=== PATIENT | female | born 1995 ===

== ENCOUNTER 2019-01-23 16:16 | Emergency (ER) | payer OTHER ==
--- NOTE | 2019-01-23 16:27 | ED ---
Lower Extremity - HPI Summary HPI Summary: 23 yo female presents to [facility] with left calf pain. She tells me that for the last 3-4 days she has noticed some left calf pain that is worse with ambulation and with palpation. Rest improves her symptoms. She has not taken anything OTC for her symptoms. She was at [facility] earlier today for this and they recommended she come to the ED over concerns for a DVT. Pt takes a daily OBC, but does not smoke, has had no recent travel, and denies difficulty breathing, dyspnea, chest pain, SOB. No personal or family hx of blood clots - History of Current Complaint Chief Complaint: EDExtremityLower Stated Complaint: "LEFT CALF PAIN PER PT" Time Seen by Provider: 01/23/19 16:26 Hx Obtained From: Patient Severity Initially: Mild Severity Currently: Mild Pain Intensity: 2 Pain Scale Used: 0-10 Numeric - Allergies/Home Medications Allergies/Adverse Reactions: Allergies Allergy/AdvReac Type Severity Reaction Status Date / Time No Known Allergies Allergy Verified 01/23/19 16:26 PMH/Surg Hx/FS Hx/Imm Hx Endocrine/Hematology History: Denies: Hx Anticoagulant Therapy, Hx Blood Disorders, Hx Diabetes, Hx Anemia , Hx Unexplained Bleeding, Hx Coagulopothy, Autoimmune Disease Respiratory History: Denies: Hx Asthma, Hx Chronic Obstructive Pulmonary Disease (COPD) Neurological History: Denies: Hx CVA, Hx Headaches Psychiatric History: Denies: Hx Anxiety, Hx Depression - Surgical History Surgical History: None Infectious Disease History: No Infectious Disease History: Denies: Traveled Outside the [place] in Last 30 Days - Family History Known Family History: Positive: Non-Contributory - Social History Occupation: Student Lives: Dormitory/Roommates Alcohol Use: Occasionally Substance Use Type: Reports: None Smoking Status (MU): Never Smoked Tobacco Review of Systems Constitutional: Negative Cardiovascular: Negative Respiratory: Negative Gastrointestinal: Negative Genitourinary: Negative Musculoskeletal: Other - Left calf pain Skin: Negative Neurological: Negative Psychological: Normal All Other Systems Reviewed And Are Negative: No Physical Exam - Summary Physical Exam Summary: GENERAL: NAD. WDWN. No pain distress. SKIN: No rashes, sores, lesions, or open wounds. CHEST: CTAB. No accessory muscle use. Breathing comfortably and in no distress. CV: Pulses intact PT and DP. Cap refill <2seconds MSK: LEFT CALF: Slight TTP about area of concern at medial mid calf. No edema or obvious bony deformities. Negative [place] test. Negative Anival sign. NEURO: Alert. Sensations intact and symmetric B/L LEs PSYCH: Age appropriate behavior. Triage Information Reviewed: Yes Vital Signs On Initial Exam: Initial Vitals Temp Pulse Resp BP Pulse Ox 98.4 F 77 16 135/87 100 01/23/19 16:20 01/23/19 16:20 01/23/19 16:20 01/23/19 16:20 01/23/19 16:20 Vital Signs Reviewed: Yes Diagnostics - Vital Signs Vital Signs Temp Pulse Resp BP Pulse Ox 01/23/19 16:20 98.4 F 77 16 135/87 100 - Laboratory Lab Results: Laboratory Tests 01/23/19 01/23/19 16:45 16:45 WBC 5.6 RBC 4.64 Hgb 14.0 Hct 41 MCV 89 MCH 30 MCHC 34 RDW 13 Plt Count 347 MPV 7.3 L Neut % (Auto) 51.9 Lymph % (Auto) 38.9 [place] % (Auto) 7.5 Eos % (Auto) 1.1 Baso % (Auto) 0.6 Absolute Neuts (auto) 2.9 Absolute Lymphs (auto) 2.2 Absolute Monos (auto) 0.4 Absolute Eos (auto) 0.1 Absolute Basos (auto) 0.0 Absolute Nucleated RBC 0.0 Nucleated RBC % 0.1 Sodium 138 Potassium 3.8 Chloride 104 Carbon Dioxide 27 Anion Gap 7 BUN 12 Creatinine 0.81 Est GFR ( Amer) 108.0 Est GFR (Non-Af Amer) 89.3 BUN/Creatinine Ratio 14.8 Glucose 108 H Calcium 9.4 Total Bilirubin 0.70 AST 18 ALT 14 Alkaline Phosphatase 74 Total Protein 6.9 Albumin 4.4 Globulin 2.5 Albumin/Globulin Ratio 1.8 Beta HCG, Quant < 0.60 Result Diagrams: 01/23/19 16:45 01/23/19 16:45 Lab Statement: Any lab studies that have been ordered have been reviewed, and results considered in the medical decision making process. - Ultrasound Left leg Ultrasound Interpretation Completed By: Radiologist Summary of Ultrasound Findings: IMPRESSION: NO EVIDENCE FOR DEEP VENOUS THROMBOSIS. Lower Extremity Course/Dx - Course Course Of Treatment: US negative. Labwork WNL. Suspect muscle strain. Advised to rest and take tylenol/ibuprofen for discomfort. F/u with [facility] early next week for a recheck - Diagnoses Provider Diagnoses: Calf cramp Discharge ED - Sign-Out/Discharge Documenting (check all that apply): Patient Departure Patient Received Moderate/Deep Sedation with Procedure: No - Discharge Plan Condition: Stable Disposition: HOME Patient Education Materials: Muscle Strain (ED) Referrals: No Primary Care Phys,NOPCP [Primary Care Provider] - [facility] - [place] [facility] [[place], APPLICATION, OTHER] - 3 Days Additional Instructions: If you develop a fever, shortness of breath, chest pain, new or worsening symptoms - please call your PCP or go to the ED immediately. Your Ultrasound was normal today Please rest and take tylenol/ibuprofen for your discomfort. Please follow up with [facility] for further evaluation of your pain. - Billing Disposition and Condition Condition: STABLE Disposition: Home - Attestation Statements Provider Attestation: I was available for consultation for this patient. I did not evaluate the patient or participate in any medical decision making or disposition decisions unless I am specifically named in the chart as having consulted on the patient. If I have consulted on the patient, please see my own ED note on the patient encounter. Sincere Ramirez MD
[2019-01-23 17:06] LABS: ABS Eosinophils 0.1 10^3/ul (0-0.6); ABS Lymphocytes 2.2 10^3/ul (1.0-4.8); ABS Monocytes 0.4 10^3/ul (0-0.8); ABS Neutrophils 2.9 10^3/ul (1.5-7.7); Hematocrit 41 % (35-47); Lymphocyte % 38.9 %; Mean Corpuscular HGB Conc 34 g/dL (31-36); Mean Corpuscular Hemoglobin 30 pg (27-31); Mean Corpuscular Volume 89 fL (80-97); Mean Platelet Volume 7.3 fL (7.4-10.4); Platelet Count 347 10^3/uL (150-450); Red Blood Count 4.64 10^6 /uL (3.70-4.87); Red Cell Distribution Width 13 % (10-15); White Blood Count 5.6 10^3/uL (3.5-10.8)
[2019-01-23 17:07] LABS: Eosinophil % 1.1 %; Nucleated Red Blood Cells % 0.1
[2019-01-23 17:18] LABS: ALT 14 U/L (7-52); AST 18 U/L (13-39); Albumin 4.4 g/dL (3.2-5.2); Albumin/Globulin Ratio 1.8 (1-3); Alkaline Phosphatase 74 U/L (34-104); Anion Gap 7 mmol/L (2-11); BUN/Creatinine Ratio 14.8 (8-20); Blood Urea Nitrogen 12 mg/dL (6-24); CO2 Carbon Dioxide 27 mmol/L (22-32); Calcium 9.4 mg/dL (8.6-10.3); Chloride 104 mmol/L (101-111); EGFR Non-African American 89.3 (>60); Globulin 2.5 g/dL (2-4); Glucose 108 mg/dL (70-100); Potassium 3.8 mmol/L (3.5-5.0); Sodium 138 mmol/L (135-145); Total Protein 6.9 g/dL (6.4-8.9)
[2019-01-23] MEDS ORDERED: NS 0.9% 1000 ML** 1,000 ML IV ONE (17:22)
[2019-01-23] MEDS ORDERED: Morphine 4 MG/ML VIAL (1 ml) 4 MG/ML VIAL IV ONE (17:22)
[2019-01-23] MEDS ORDERED: Ondansetron INJ* 2 MG/ML VIAL IV ONE (17:22)
[2019-01-23 17:24] LABS: HCG Pregnancy < 0.60 mIU/mL
[2019-01-23 18:32] VITALS: BP 126/98
== END 2019-01-23 18:32 | disposition home or self-care (01) ==
LOC: ED 16:16
DX: R25.2 Cramp and spasm (principal)
CPT/HCPCS: 36415; 80053; 84702; 85025; 96374; 96375; 99282